=== PATIENT | female | born 1950 | race Caucasian/White ===

== ENCOUNTER 2024-01-25 11:44 | Emergency (ER) | payer BC ==
[2024-01-25 12:35] VITALS: BP 141/88; PULSE 98; RESP 22; TEMP 98.4; O2SAT 98
[2024-01-25] MEDS: ONDANSETRON ODT 4 MG TAB PO ONE (12:43)
[2024-01-25] MEDS ORDERED: HYDR-4902 PO (13:45)
[2024-01-25] MEDS: HYDROcodone-ACET 5/325MG TAB PO ONE (13:53)
== END 2024-01-25 14:04 | disposition home or self-care (01) ==
LOC: EDBD 11:44 → ER 11:44
DX: S42.201A Unspecified fracture of upper end of right humerus, initial encounter for closed fracture (principal); S39.012A Strain of muscle, fascia and tendon of lower back, initial encounter; I10 Essential (primary) hypertension; E11.9 Type 2 diabetes mellitus without complications; E78.5 Hyperlipidemia, unspecified; Z79.899 Other long term (current) drug therapy; W01.0XXA Fall on same level from slipping, tripping and stumbling without subsequent striking against object, initial encounter; Y93.89 Activity, other specified; Y92.89 Other specified places as the place of occurrence of the external cause; Y99.8 Other external cause status
CPT/HCPCS: 29105; 72100; 73030; 99284; Q0162